=== PATIENT | male | born 1955 | race Hispanic/Latino ===

== ENCOUNTER 2022-09-13 14:15 | Emergency (ER) | payer SELFPAY ==
[2022-09-13] MEDS ORDERED: Morphine 2 MG/ML VIAL ONE ×2 (14:44→19:37)
[2022-09-13] MEDS ORDERED: hydrALAZINE 20 MG/ML VIAL ONE (14:45)
[2022-09-13] MEDS ORDERED: Morphine 4 MG/ML VIAL ONE ×2 (14:45→19:37)
[2022-09-13] MEDS ORDERED: Ondansetron PF 4 MG/2 ML Vial ONE (14:45)
[2022-09-13 14:47] LABS: #Basophils 0.1 thou/uL (0.0-0.2); #Eosinphils 0.2 thou/uL (0.0-0.7); #Lymphocytes 1.3 thou/uL (1.20-3.40); #Monocytes 0.7 thou/uL (0.11-0.59); #Neutrophils 5.8 thou/uL (1.40-6.50); %Basophils 1.1 % (0.0-1.0); %Eosinophils 2.4 % (0.0-10.0); %Lymphocytes 15.8 % (21.0-51.0); %Monocytes 8.3 % (0.0-10.0); %Neutrophils 72.4 % (42.0-75.0); Hemoglobin 14.5 g/dL (14.0-18.0); Mean Corpuscular HGB CONC 34.5 g/dL (32.0-36.0); Mean Corpuscular Hemoglobin 31.2 pg (27.0-31.0); Mean Corpuscular Volume 90.5 fl (78.0-98.0); Platelet Count 165 10x3/uL (130-400); RBC Distribution Width 10.7 % (11.5-14.5); Red Blood Cell (RBC) Count 4.65 mill/uL (4.70-6.10)
[2022-09-13 15:01] LABS: ALT (SGPT) 18 U/L (8-55); AST (SGOT) 18 U/L (5-34); Albumin 4.2 g/dL (3.4-4.8); Alkaline Phosphatase 140 U/L (40-110); Anion Gap 19 mmol/L (10-20); BUN (Urea Nitrogen) 17 mg/dL (8.4-25.7); Bilirubin, Total 0.5 mg/dL (0.2-1.2); Calc. Creatinine Clearance 0 mL/min (70-130); Calcium 9.1 mg/dL (7.8-10.44); Carbon Dioxide 23 mmol/L (23-31); Chloride 96 mmol/L (98-107); Estimated GFR 63; Globulin 2.5 g/dL (2.4-3.5); Potassium 3.2 mmol/L (3.5-5.1); Protein, Total 6.7 g/dL (5.8-8.1); Sodium 135 mmol/L (136-145)
[2022-09-13 15:03] LABS: Bilirubin Negative (Negative); Blood, Urine Moderate (Negative); Clarity Clear (Clear); Glucose, Urine (Dipstick) 500 mg/dL (Negative); Ketone, Urine Negative (Negative); Leukocyte Negative (Negative); Nitrite Negative (Negative); Protein, Urine (Dipstick) > or equal to 300 mg/dL (Neg-Trace); Urobilinogen 0.2 mg/dL (Less than 2)
[2022-09-13 15:09] LABS: Glucose 463 mg/dL (80-115)
[2022-09-13 15:12] LABS: Squamous Epithelial 0-3 HPF (0-3)
[2022-09-13] MEDS ORDERED: Labetalol HCl 100 MG/20 ML VIAL ONE (16:26)
[2022-09-13] MEDS ORDERED: Potassium Chloride 20 MEQ TAB ONE (16:26)
[2022-09-13 16:41] LABS: Magnesium 1.9 mg/dL (1.6-2.6)
[2022-09-13] MEDS ORDERED: Aspirin Chewable 81 MG TAB ONE (19:37)
== END 2022-09-13 19:52 | disposition short-term general hospital (02) ==
LOC: NAV ERS 14:15
DX: S40.022A Contusion of left upper arm, initial encounter (principal); I16.0 Hypertensive urgency; E11.65 Type 2 diabetes mellitus with hyperglycemia; I10 Essential (primary) hypertension; E78.5 Hyperlipidemia, unspecified; X58.XXXA Exposure to other specified factors, initial encounter; Z79.84 Long term (current) use of oral hypoglycemic drugs
CPT/HCPCS: 71045; 80053; 81003; 81015; 83735; 84484; 85025; 93005; 96365; 96366; 96375; 96376; J0360; J2270; J2405